=== PATIENT | male | born 1965 | race African-American/Black ===

== ENCOUNTER 2019-04-18 17:40 | Inpatient (IN) ==
[2019-04-18 18:15] LABS: URINE SOURCE CLEAN CATCH
[2019-04-18 18:22] LABS: BASO# 0.04 X1000 (0.0-0.2); BASO% 0.5 % (0.0-0.8); EOS# 0.01 X1000 (0.0-0.7); EOS% 0.1 % (0.0-10.0); HEMATOCRIT 49.9 % (42.0-52.0); IMM GRAN# 0.03 X1000 (0.0-0.04); IMM GRAN% 0.4 % (0.0-0.5); LYMPH# 0.75 X1000 (1.2-3.4); MCH 22.2 PG (27-31); MCHC 30.1 g/dL (33-37); MCV 73.8 FL (81-99); MONO# 0.61 X1000 (0.11-0.59); MONO% 7.3 % (1.7-9.3); MPV 10.9 FL (7.4-10.4); NEUT# 6.88 X1000 (1.4-6.5); NEUT% 82.7 % (42.2-75.2); PLT 210 X1000 (130-400); RBC 6.76 XMIL (4.7-6.1); RDW 17.3 % (11.5-14.5); WBC 8.32 X1000 (4.8-10.8)
[2019-04-18 18:22] LABS: BILIRUBIN URINE NEGATIVE (NEGATIVE); BLOOD URINE TRACE (NEGATIVE); COLOR YELLOW; GLUCOSE URINE >1000 mg/dL (NEGATIVE); KETONE URINE NEGATIVE (NEGATIVE); LEUKOCYTES URINE NEGATIVE (NEGATIVE); NITRITE URINE NEGATIVE (NEGATIVE); PROTEIN URINE 50 mg/dL (NEGATIVE); SP GRAVITY URINE 1.025; TURBIDITY URINE CLEAR (CLEAR); UROBILINOGEN URINE NORMAL (NORMAL)
[2019-04-18 18:23] LABS: UR EPITHELIAL CELLS <10 /HPF (<10); URINE BACTERIA NEGATIVE /HPF; URINE RBC <10 /HPF (<10); URINE WBC <10 /HPF (<10)
[2019-04-18 18:41] LABS: AGAP 15; ALB/GLOB RATIO 1.2; ALBUMIN 4.2 g/dL (3.5-5.0); ALKALINE PHOSPHATASE 62 U/L (32-122); BUN 13 mg/dL (8-22); CALCIUM 9.6 mg/dL (8.8-10.2); CHLORIDE 98 mmol/L (98-107); COSMO 281; CREATININE 1.4 mg/dL (0.7-1.2); ESTIMATED GFR > 60; GLUCOSE 262 mg/dL (70-104); GOT 31 U/L (10-34); GPT 19 U/L (10-44); POTASSIUM 4.2 mmol/L (3.5-5.1); SODIUM 136 mmol/L (136-145); TCO2 23 mmol/L (25-35); TOTAL BILIRUBIN 0.57 mg/dL (0.20-1.00); TOTAL PROTEIN 7.7 g/dL (6.3-8.3)
[2019-04-18 18:55] LABS: LIPASE 634 U/L (13-60)
[2019-04-18] MEDS ORDERED: DILAUDID IV ONE (19:31)
[2019-04-18] MEDS ORDERED: ZOFRAN IV ONE (19:31)
--- NOTE | 2019-04-18 19:50 | Diag Imaging Result Doc PS360 ---
CT ABDOMEN/PELVIS W/O CONTRAST - 04/18/2019 INDICATION: abd pain, hx of pancreatitis COMPARISON: 03/03/2017 FINDINGS: The lung bases are clear and the heart size is normal. There is severe diffuse fatty change of the liver. No biliary dilation. There is severe diffuse inflammatory edema all around the pancreas. No focal or drainable fluid collections. Stable penile prosthesis in good position. Urinary bladder and rectum are normal. No bowel obstruction or inflammation. There are couple of tiny 1 mm nonobstructing renal stones bilaterally. No hydronephrosis. IMPRESSION: 1. Severe diffuse pancreatitis. No fluid collections. 2. Severe fatty change of the liver. 3. Tiny nonobstructing renal stones. This exam was performed using automated exposure control, adjustment of mA or kV according to patient size, and/or use of iterative reconstruction technique Electronically signed by Patrick Shipman 04/18/2019 7:48 PM
[2019-04-18] MEDS ORDERED: NS 1,000 ML IV ONE (20:47)
--- NOTE | 2019-04-18 20:55 | PROVIDER DOCUMENTATION ---
This chart was entered by Radha Moran Scribe, acting as scribe for Hipolito Santana MD. HPI-Abdominal Pain/GI Problem - General Chief Complaint: Abdominal Pain Stated Complaint: "PANCREATITIS" Time Seen by Provider: 04/18/19 18:42 Source: patient, family Allergies/Adverse Reactions: Patient Allergies Allergy/AdvReac Type Severity Reaction Status Date / Time aspirin AdvReac Unknown Verified 07/26/17 16:45 Home Medications: Home Medication List Medication Instructions Recorded Confirmed Last Taken Type Metformin HCl [Glumetza] 500 mg PO BID 09/17/13 04/18/19 05/07/16 08:00 History Nebivolol HCl [Bystolic] 10 mg PO QAM 09/18/13 04/18/19 05/07/16 08:00 History Insulin Detemir [Levemir] 35 unit SQ DAILY 02/26/17 04/18/19 Unknown History Rosuvastatin Calcium [Crestor] 5 mg PO DAILY 02/26/17 04/18/19 Unknown History Antihemophil.fviii,Full Length 3,000 unit IV DIRECTED 07/26/17 04/18/19 Unknown History [Advate] Fenofibric Acid D.r. [Trilipix] 135 mg PO DAILY 07/26/17 04/18/19 Unknown History Glucosamine 500 mg PO BID 07/26/17 04/18/19 Unknown History Hydrochlorothiazide 12.5 mg PO DAILY 07/26/17 04/18/19 Unknown History Hydrocodone/Acetaminophen [[place] 10 mg PO Q4H PRN PRN 07/26/17 04/18/19 Unknown History 10-325 Tablet] Omeprazole 20 mg PO DAILY 07/26/17 04/18/19 Unknown History Sucralfate 1 gm PO BID 07/26/17 04/18/19 Unknown History Febuxostat [Uloric] 1 tab PO DAILY 04/18/19 04/18/19 Unknown History Losartan Potassium [Cozaar] 50 mg PO 04/18/19 Unknown History Sucralfate 1 tab PO DAILY 04/18/19 04/18/19 Unknown History - History of Present Illness-ABD Nature of Presenting Problems: Pt is a 53 yom who presents to the ED with a cc of abd and back pain. Pt states that the back pain began last night and the abd pain began this morning. Pt reports a hx of pancreatitis and states that his symptoms are similar to the last time. Pt describes the pain as "cramping" and reports nausea, vomiting, and loss of appetite. Pt also states that he attempted to use the restroom and strained. Pt states that he drinks a pint of alcohol a day and that the alcohol triggered his last pancreatitis. Pt does not present to the ED with any other complaints. Pt states last drink was last night; he denies any hx of DTs. Abdominal Pain Onset Location: reports: generalized abdomen Pain Radiation: reports: back Quality of Pain: reports: cramping Severity in ED: reports: mild Onset/Duration: reports: this morning, last night Timing: reports: still present Activities at Onset: reports: none Exposure to sick contacts?: No Modifying Factors: improves with: nothing Associated Symptoms: reports: back/neck pain, loss of appetite, nausea, vomiting Last BM: this morning Dark Stools Present?: reports: none noticed, other (Pt states stool is actually light "yellowish, caramel" color) Rectal Bleeding: reports: none Rectal Pain: reports: none # of Vomiting Episodes: 1 Emesis Description: reports: other (food contents) Bruising or Bleeding Gums?: No Similar Symptoms Previously?: Yes Recently seen or treated by another doctor?: Yes Review of Systems - Adult - REVIEW OF SYSTEMS - ADULT Constitutional: reports: see HPI Eyes: reports: no symptoms reported Ears, Nose, Mouth & Throat: reports: no symptoms reported Cardiovascular: reports: no symptoms reported Respiratory: reports: no symptoms reported Gastrointestinal: reports: see HPI, abdominal pain, nausea, vomiting Genitourinary: reports: no symptoms reported Musculoskeletal: reports: see HPI, back pain Integumentary: reports: no symptoms reported Neurological: reports: no symptoms reported Psychiatric: reports: no symptoms reported Endocrine: reports: no symptoms reported Hematologic/Lymphatic: reports: no symptoms reported Allergic/Immunologic: reports: no symptoms reported All Other Systems: Reviewed and Negative Past History - Adult - PAST MEDICAL HISTORY-ADULT Review of Records: reports: Old Records Reviewed Major Childhood Illnesses: reports: denies history Cardiovascular: reports: HTN, hyperlipidemia Respiratory: reports: denies history Gastrointestinal: reports: other (pancreatitis) Obstetrical/Gynecological: reports: denies history Genitourinary: reports: prostate cancer Musculoskeletal: reports: other (gout) Neurological: reports: denies history Endocrine/Immune: reports: Diabetes Diabetes Type: Type 2 Diabetes controlled by:: PO Meds, Insulin Dependent 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) - PRIOR SURGERIES/PROCEDURES Surgical/Procedure History: reports: other (total knee replacement, left elbow, left ankle fusion, prostate) - PRIOR HOSPITALIZATIONS Prior Hospitalizations: reports: none - IMMUNIZATION STATUS Childhood Immunizations: See Nurse Assessment Flu Vaccine: See Nurse Assessment - FAMILY HISTORY Family History: reviewed, not pertinent - SOCIAL HISTORY Smoking: quit greater than 1 year Substance Use: alcohol Alcohol Use Frequency: every day Number of drinks per typical drinking period:: 5-10 drinks Living Situation: family Physical Exam-General - PHYSICAL EXAM-ADULT Initial Vital Signs Reviewed: Yes - CONSTITUTIONAL General Appearance: alert, no apparent distress - EYES Eyes: PERRL/EOMI, pink conjunctivae - HEAD, EARS, NOSE, MOUTH & THROAT HENMT: normocephalic/atraumatic, moist mucous membranes - NECK Neck: full range of motion - RESPIRATORY Respiratory: chest non-tender, lungs clear, normal breath sounds. negative: crackles, rhonchi - CARDIOVASCULAR Cardiovascular: normal peripheral pulses, regular rate, rhythm, no murmur. negative: bradycardia, tachycardia - GASTROINTESTINAL (ABDOMEN) Abdominal Exam: abnormal bowel sounds (hypoactive), guarding, tenderness - MUSCULOSKELETAL Back Exam: normal inspection, no CVA tenderness. negative: ecchymosis Extremity: normal range of motion, non-tender, normal inspection. negative: deformity, erythema - SKIN Integumentary: normal color, normal turgor, warm/dry. negative: ecchymosis, erythema - NEUROLOGIC Neurologic: grossly normal, no motor/sensory deficits. negative: facial droop - PSYCHIATRIC Psych/Mental Status: normal mood/affect, oriented x 3 Progress - PLAN OF CARE/RESULTS Progress/Plan/Lab Results: Vital Signs - 8 hr 04/18/19 17:46 Temperature 98.3 F Pulse Rate 74 Respiratory Rate 19 Blood Pressure 160/97 O2 Sat by Pulse Oximetry 98 Laboratory Results - last 24 hr 04/18/19 04/18/19 04/18/19 17:56 17:56 18:00 WBC 8.32 RBC 6.76 H Hgb 15.0 Hct 49.9 MCV 73.8 L MCH 22.2 L MCHC 30.1 L RDW Std Deviation 17.3 H Plt Count 210 MPV 10.9 H Immature Gran % (Auto) 0.4 Neut % (Auto) 82.7 H Lymph % (Auto) 9.0 L [place] % (Auto) 7.3 Eos % (Auto) 0.1 Baso % (Auto) 0.5 Immature Gran # (Auto) 0.03 Neut # (Auto) 6.88 H Lymph # (Auto) 0.75 L [place] # (Auto) 0.61 H Eos # (Auto) 0.01 Baso # (Auto) 0.04 Sodium 136 Potassium 4.2 Chloride 98 Carbon Dioxide 23 L Anion Gap 15 BUN 13 Creatinine 1.4 H Estimated GFR/1.73 m2 > 60 BUN/Creatinine Ratio 9 Glucose 262 H Calculated Osmolality 281 Calcium 9.6 Total Bilirubin 0.57 AST 31 ALT 19 Alkaline Phosphatase 62 Total Protein 7.7 Albumin 4.2 Globulin 3.5 Albumin/Globulin Ratio 1.2 Urine Source CLEAN CATCH Urine Color YELLOW Urine Turbidity CLEAR Urine pH 6.0 Ur Specific [place] 1.025 Urine Protein 50 A Ur Glucose (Stick) >1000 A Ur Ketones (Stick) NEGATIVE Urine Blood TRACE A Urine Nitrite NEGATIVE Urine Bilirubin NEGATIVE Urobilinogen Dipstick NORMAL Urine Leukocytes NEGATIVE Urine WBC (Auto) <10 Urine RBC (Auto) <10 U Epithel Cells (Auto) <10 Urine Bacteria (Auto) NEGATIVE Orders Category Date Time Status NPO Diet 04/18/19 17:[address] ABDOMEN/PELVIS W/O CONTRAST [CT] Stat Exams 04/18/19 18:42 Ordered CBC WITH DIFF [HEME] Stat Lab 04/18/19 17:56 Completed COMPREHENSIVE METABOLIC PANEL [CHEM] Stat Lab 04/18/19 17:56 Results LIPASE [CHEM] Stat Lab 04/18/19 17:56 Results UA NIMS W/REFLEX CULT [URINALYSIS] Stat Lab 04/18/19 18:00 Completed Abd Pain/OB <20 weeks Stat Oth 04/18/19 17:49 Ordered Pt has lipase of 634, and CT confirming diffuse edema around the pancreas; pt to be admitted per discussion with hospitalist; pt and family made aware at bedside. Result Diagrams: 04/18/19 17:56 04/18/19 17:56 - CT/MRI 1 CT Study: Abdomen Impression: Abnormal (CT ABDOMEN/PELVIS W/O CONTRAST - 04/18/2019 INDICATION: abd pain, hx of pancreatitis COMPARISON: 03/03/2017 FINDINGS: The lung bases are clear and the heart size is normal. There is severe diffuse fatty change of the liver. No biliary dilation. There is severe diffuse inflammatory edema all around the pancreas. No focal or drainable fluid collections. Stable penile prosthesis in good position. Urinary bladder and rectum are normal. No bowel obstruction or inflammation. There are couple of tiny 1 mm nonobstructing renal stones bilaterally. No hydronephrosis. IMPRESSION: 1. Severe diffuse pancreatitis. No fluid collections. 2. Severe fatty change of the liver. 3. Tiny nonobstructing renal stones. This exam was performed using automated exposure control, adjustment of mA or kV according to patient size, and/or use of iterative reconstruction technique Electronically signed by Patrick Shipman 04/18/2019 7:48 PM [id number]) - CONSULTS/PCP/HOSPITALIST Notification #1 *Consult/PCP/Hospitalist*: Dr. Davis Time Discussed: 19:00 Consult Disposition: Admit Departure - Departure Date of Disposition Decision: 04/18/19 Time of Disposition Decision: 20:53 DIAGNOSIS: Pancreatitis, alcoholic, acute Qualifiers: Acute pancreatitis complication: unspecified Qualified Code(s): K85.20 - Alcohol induced acute pancreatitis without necrosis or infection Disposition: ADMITTED INPATIENT 09 Certified Medical Emergency: Emergent Condition: Fair Referrals and Follow-Ups: Jorge Luis Phelps MD [Primary Care Provider] - - Critical Care Note This patient required my direct & personal management of CC.: No Attestation - Physician/ CHANDRAKANT Attestation Patient care was provided by Advanced Practice Provider:: No The physician spent face to face time with patient:: Yes Advanced Practice Provider documentation review:: Supervising physician onsite and consulted in the evaluation and care of this patient. The physician did have a face to face encounter with the patient. This chart was documented by the guillaume scribe, (Radha Moran Scribe) and accurately reflects the services I performed and decisions made by , Hipolito Santana MD, as attested by the provider's signature.
[2019-04-18] MEDS ORDERED: ATIVAN IV PRN (21:40)
[2019-04-18] MEDS: DEMEROL IV PRN (21:50)
[2019-04-18] MEDS: ZOFRAN IV PRN (23:40)
[2019-04-18] MEDS: NS 1,000 ML IV SCH (23:40)
--- NOTE | 2019-04-19 02:05 | HISTORY AND PHYSICAL ---
PRIMARY CARE PROVIDER: Dr. Jorge Luis Phelps. CHIEF COMPLAINT: Back and abdominal pain. HISTORY OF PRESENT ILLNESS: Mr. Stephenson is a pleasant 53-year-old gentleman with a past medical history of hemophilia, factor VIII deficiency, recently was changed over to a subcu medication every 2 weeks for that, diabetes mellitus type 2, non-insulin dependent, hypertension, alcohol use and abuse. He reports about 1 pint of whiskey per day. He had stopped for a little while, but recently started back again this past month. He came to the ED complaining of back pain that started last night and then abdominal pain that was tender and cramping all over. He did have 1 episode of nausea and vomiting today after he tried to eat some food. His last BM was this a.m. He reported it as loose and Ericka colored. He has had some hot and cold sweats. No headache. No chest pain. No shortness of breath. No palpitations. No dysuria. No bright red or dark tarry stools. Workup in the ED with a abdomen and pelvis CT showed severe diffuse pancreatitis. No fluid collection. Severe fatty change of the liver. Tiny nonobstructing renal stones. Laboratory data showed an acute kidney injury with a creatinine of 1.4, which may baseline now. Lipase is 634 and a blood glucose level of 262. He will be admitted for acute pancreatitis. We will keep him NPO, antiemetics, pain regimen, and GI consult. PAST MEDICAL HISTORY: Per HPI. PAST SURGICAL HISTORY: Total prostatectomy, penile prosthesis, left elbow surgery, bilateral knee replacements, left ankle surgery, hemorrhoidectomy. SOCIAL HISTORY: He is disabled. He uses braces to walk with that are in his shoes to avoid surgery. He lives in [place]. He is . He has children. There is no tobacco use. He does drink a pink of whiskey per day. He did report he will go times without drinking. He had just started back drinking a month ago. No illicit drugs. FAMILY HISTORY: Brother who is also factor VIII deficient. HOME MEDICATIONS: Bystolic, Cozaar, Crestor, glucosamine, metformin, hydrochlorothiazide, Levemir, [place], Prilosec, Trilipix and Uloric. REVIEW OF SYSTEMS: Twelve-point review of systems completely negative except for those mentioned in HPI. PHYSICAL EXAMINATION: VITAL SIGNS: Temperature is 98.3 degrees, heart rate 74, respiration 19, blood pressure 160/97, O2 is 98% on room air. GENERAL: Mr. Stephenson is a pleasant 53-year-old male who is lying on the stretcher. He is complaining of some discomfort in his back as well as abdomen, but in no acute distress. HEENT: Atraumatic, normocephalic. PERRL. NECK: Supple. Trachea midline. CARDIOVASCULAR: S1, S2 appreciated. No murmurs, gallops, rubs noted. RESPIRATORY: Lung sounds clear bilaterally. GI is soft, tender all 4 quadrants. Positive bowel sounds. EXTREMITIES: Negative for edema. NEUROLOGIC: No focal deficits noted. DIAGNOSTIC DATA: Abdomen and pelvis CT severe diffuse pancreatitis. No fluid collection. Severe fatty change of the liver. Tiny nonobstructing renal stones. LABORATORY DATA: White count 8, hemoglobin and hematocrit 15 and 49, platelet count is 210,000. Sodium 136, potassium 4.2, BUN 13, creatinine 1.4. Blood glucose is 262, lipase is 634. Urinalysis shows greater than 1000 glucose, 50 protein. ASSESSMENT AND PLAN: 1. Acute alcoholic pancreatitis without any signs of infection or necrosis. We will make him NPO, consult GI. Continue with aggressive IV fluid hydration, pain regimen, antiemetics. Recheck his amylase and lipase in the a.m. 2. Chronic kidney disease. He appears to be at his baseline at 1.4. 3. Diabetes mellitus. We will check hemoglobin A1c in the a.m. Place him on sliding scale with pattern blood sugars. 4. Hemophilia factor VIII deficient. The patient is now on a subcu medication q.2 weeks. I will monitor him for any signs and symptoms of bleeding. 5. Hypertension, stable. 6. Alcohol use and abuse. The patient had quit and does that from [id number]. However, he started drinking again within the past month. He drinks a pint of whiskey a day. We have provided some p.r.n. Ativan in case of any agitation or withdrawals. 7. Further recommendation to follow physician evaluation, laboratory and diagnostic data. Dictated by ADAM Jung for Elder Davis MD cc: MD Jorge Luis Villagomez MD
[2019-04-19] MEDS: DEMEROL IV PRN ×6 (02:06→22:21)
[2019-04-19] MEDS: ZOFRAN IV PRN ×5 (06:13→22:21)
[2019-04-19 07:03] LABS: BASO# 0.01 X1000 (0.0-0.2); BASO% 0.1 % (0.0-0.8); EOS# 0.01 X1000 (0.0-0.7); EOS% 0.1 % (0.0-10.0); HEMOGLOBIN 14.3 g/dL (14.0-18.0); IMM GRAN# 0.02 X1000 (0.0-0.04); IMM GRAN% 0.2 % (0.0-0.5); LYMPH# 0.55 X1000 (1.2-3.4); LYMPH% 5.1 % (20.5-51.1); MCH 22.6 PG (27-31); MCHC 30.4 g/dL (33-37); MCV 74.1 FL (81-99); MONO# 0.72 X1000 (0.11-0.59); MONO% 6.7 % (1.7-9.3); MPV 12.3 FL (7.4-10.4); NEUT# 9.49 X1000 (1.4-6.5); NEUT% 87.8 % (42.2-75.2); PLT 224 X1000 (130-400); RBC 6.34 XMIL (4.7-6.1); RDW 16.7 % (11.5-14.5)
[2019-04-19 07:14] LABS: HEMOGLOBIN A1C 9.1 % (4.8-6.0)
[2019-04-19] MEDS: NS 1,000 ML IV SCH ×3 (07:42→23:52)
[2019-04-19 07:46] LABS: LYMPHS 2 % (21-51); MONO 3 % (1-9); SEGS 95 % (42-75)
[2019-04-19 07:47] LABS: AGAP 12; ALB/GLOB RATIO 1.3; ALBUMIN 3.8 g/dL (3.5-5.0); ALKALINE PHOSPHATASE 51 U/L (32-122); AMYLASE 816 U/L (20-200); BUN 16 mg/dL (8-22); CALCIUM 8.8 mg/dL (8.8-10.2); CHLORIDE 102 mmol/L (98-107); COSMO 278; CREATININE 1.2 mg/dL (0.7-1.2); ESTIMATED GFR > 60; GLUCOSE 227 mg/dL (70-104); GOT 27 U/L (10-34); GPT 14 U/L (10-44); LIPASE 590 U/L (13-60); MAGNESIUM 1.4 mg/dL (1.5-2.7); POTASSIUM 4.3 mmol/L (3.5-5.1); SODIUM 135 mmol/L (136-145); TCO2 21 mmol/L (25-35); TOTAL BILIRUBIN 0.74 mg/dL (0.20-1.00); TOTAL PROTEIN 6.7 g/dL (6.3-8.3)
[2019-04-19] MEDS: HUMALOG SUBQ SCH ×4 (08:06→20:51)
--- NOTE | 2019-04-19 11:45 | PROGRESS NOTE ---
DATE: 04/19/2019 SUBJECTIVE: The patient reports still complaining of abdominal pain. Reports that he had another episode of pancreatitis 3 years back. No other complaints at this time. OBJECTIVE: Vital Signs: Temperature 98.3 degrees, heart rate 89, respiratory rate 17, blood pressure 138/85, O2 saturation 95% on room air. General examination: This is a 53-year-old, male, lying in bed in no acute distress. Cardiovascular exam: S1, S2 heard. No murmurs, gallops, or rubs. Regular rate and rhythm. Respiratory exam: Clear bilaterally to auscultation. No work of breathing or using accessory muscles. Abdomen: Soft. Tender to palpation in the epigastric area. No signs of peritoneal irritation. Bowel sounds present. No organomegaly. Extremities: No clubbing, cyanosis, or edema. Peripheral pulses present in both legs. Neurological examination: Patient alert and oriented x3. Moves 4 extremities. LABORATORY DATA: Reviewed. Glucose is 227 with hemoglobin A1c of 9.1. ASSESSMENT AND PLAN: 1. Acute alcoholic pancreatitis. The patient still complaining of pain. We are going to optimize pain medication. We are going to increase the doses of Demerol 250 mg intravenous every 3 hours. There are no signs of infection or necrosis on the CT scan. I do not think we will need to consult Gastroenterology at this point, so we are going to cancel the consult. We will continue with intravenous fluid resuscitation. The patient required some ice chips; we will provide that to him, but no food. We will continue to monitor. 2. Chronic kidney disease stage II. Creatinine at baseline. We will continue to monitor. 3. Diabetes mellitus type 2. Hemoglobin A1c is elevated, so means not well-controlled diabetes. We will continue with sliding scale insulin and Accu-Chek before meals and also at bedtime. 4. Hemophilia factor 8 deficiency. Patient is on medications every 2 weeks subcutaneously. We will continue with that, and we will monitor for any signs of bleeding. 5. Hypertension. Blood pressure is under control. We will continue with same management. 6. Alcohol use and abuse. Patient has been placed on Ativan as needed for agitation, withdrawals at this point. He does not look to be going through any withdrawals. We will continue to monitor. cc: Joel Romo MD
[2019-04-20] MEDS: DEMEROL IV PRN ×5 (05:59→23:00)
[2019-04-20] MEDS: HUMALOG SUBQ SCH ×4 (06:37→21:43)
[2019-04-20 07:23] LABS: BASO# 0.04 X1000 (0.0-0.2); BASO% 0.3 % (0.0-0.8); EOS# 0.03 X1000 (0.0-0.7); EOS% 0.2 % (0.0-10.0); HEMATOCRIT 44.7 % (42.0-52.0); HEMOGLOBIN 13.5 g/dL (14.0-18.0); IMM GRAN# 0.03 X1000 (0.0-0.04); IMM GRAN% 0.2 % (0.0-0.5); LYMPH# 0.66 X1000 (1.2-3.4); LYMPH% 4.5 % (20.5-51.1); MCH 22.4 PG (27-31); MCHC 30.2 g/dL (33-37); MCV 74.3 FL (81-99); MONO# 1.35 X1000 (0.11-0.59); MONO% 9.3 % (1.7-9.3); MPV 11.9 FL (7.4-10.4); NEUT# 12.47 X1000 (1.4-6.5); NEUT% 85.5 % (42.2-75.2); PLT 187 X1000 (130-400); RBC 6.02 XMIL (4.7-6.1); RDW 17.2 % (11.5-14.5); WBC 14.58 X1000 (4.8-10.8)
[2019-04-20 07:31] LABS: INR 1.24; PROTIME 15.8 Seconds (11.0-16.0)
[2019-04-20] MEDS: NS 1,000 ML IV SCH ×2 (07:40→18:51)
[2019-04-20 08:11] LABS: AGAP 12; ALB/GLOB RATIO 1.1; ALBUMIN 3.4 g/dL (3.5-5.0); ALKALINE PHOSPHATASE 64 U/L (32-122); BUN 15 mg/dL (8-22); CALCIUM 8.1 mg/dL (8.8-10.2); CHLORIDE 102 mmol/L (98-107); COSMO 275; CREATININE 1.2 mg/dL (0.7-1.2); ESTIMATED GFR > 60; GLUCOSE 167 mg/dL (70-104); GOT 23 U/L (10-34); GPT 9 U/L (10-44); POTASSIUM 3.9 mmol/L (3.5-5.1); SODIUM 135 mmol/L (136-145); TCO2 21 mmol/L (25-35); TOTAL PROTEIN 6.6 g/dL (6.3-8.3)
--- NOTE | 2019-04-20 10:46 | PROGRESS NOTE ---
DATE: 04/20/2019 SUBJECTIVE: Patient reports abdominal pain is much better controlled. He had some ice chips but that did not bother him, actually he wants to try some liquids today. OBJECTIVE: Vital Signs: Temperature 99.1 degrees, heart rate 90, respiratory rate 18, blood pressure 123/84, O2 saturation 96% on room air. General: This is a 53-year-old male, lying in bed, in no acute distress. Cardiovascular: S1, S2 heard. No murmurs, gallops, or rubs. Regular rate and rhythm. Respiratory: Clear bilaterally to auscultation. No work of breathing. Not using accessory muscles. Abdomen: Soft. Tender to palpation in the epigastric area. No signs of peritoneal irritation. Bowel sounds present. No organomegaly. Extremities: No clubbing, cyanosis, or edema. Peripheral pulses present in both legs. Neurological: Patient alert and oriented x3. Moves 4 extremities. LABORATORY DATA: Reviewed. ASSESSMENT AND PLAN: 1. Acute alcoholic pancreatitis. Pain is much better controlled. Currently, he is on Demerol 50 mg IV every 3 hours p.r.n. Will continue with IV fluids. The patient has tolerated ice chips well so we are going to start a clear liquid diet today and will see how he does. 2. Chronic kidney disease stage 3. Creatinine continues to be at baseline. 3. Diabetes mellitus type 2, well-controlled. Will continue with sliding scale insulin and Accu- Cheks before meals and also at bedtime. 4. Hemophilia Factor VIII deficiency. Aware. 5. Hypertension. Blood pressure is under control. We will continue with the same management. 6. Alcohol use and abuse. Patient is on Ativan as needed for possible alcohol withdrawal but this patient is completely alert, oriented. We will continue to monitor. cc: Joel Romo MD
--- NOTE | 2019-04-20 12:48 | Diag Imaging Result Doc PS360 ---
EXAM: US ABDOMEN-COMPLETE 04/20/2019 HISTORY: pancreatitis TECHNIQUE: Abdominal ultrasound COMMENT: The liver is hyperechoic. Visualization of the deeper portions of the liver is suboptimal due to the patient's body habitus. The gallbladder is clear and nontender. There is no evidence of biliary dilatation the common bile duct measuring less than 6 mm. The right kidney is without evidence of hydronephrosis or mass. The spleen is slightly enlarged measuring almost 15.6 cm in greatest dimension. The left kidney is without evidence of hydronephrosis or mass. The pancreas is not well seen. The aorta is obscured. IMPRESSION: Hepatic steatosis versus cirrhosis with splenomegaly. Electronically signed by Nate Cruz 04/20/2019 12:46 PM
[2019-04-20] MEDS: ZOFRAN IV PRN (23:00)
[2019-04-21] MEDS: NS 1,000 ML IV SCH ×4 (01:02→17:50)
[2019-04-21] MEDS: DEMEROL IV PRN ×6 (03:07→20:34)
[2019-04-21 07:24] LABS: INR 1.24; PROTIME 15.8 Seconds (11.0-16.0)
[2019-04-21 07:44] LABS: AGAP 12; ALKALINE PHOSPHATASE 64 U/L (32-122); BUN 11 mg/dL (8-22); CALCIUM 7.7 mg/dL (8.8-10.2); CHLORIDE 101 mmol/L (98-107); COSMO 272; CREATININE 1.1 mg/dL (0.7-1.2); ESTIMATED GFR > 60; GLUCOSE 144 mg/dL (70-104); GOT 22 U/L (10-34); GPT 9 U/L (10-44); POTASSIUM 3.7 mmol/L (3.5-5.1); SODIUM 135 mmol/L (136-145); TCO2 22 mmol/L (25-35); TOTAL BILIRUBIN 0.92 mg/dL (0.20-1.00); TOTAL PROTEIN 5.9 g/dL (6.3-8.3)
[2019-04-21] MEDS: HUMALOG SUBQ SCH ×4 (07:45→23:00)
[2019-04-21 07:51] LABS: BASO# 0.01 X1000 (0.0-0.2); BASO% 0.1 % (0.0-0.8); HEMATOCRIT 40.1 % (42.0-52.0); HEMOGLOBIN 12.1 g/dL (14.0-18.0); LYMPH# 0.62 X1000 (1.2-3.4); LYMPH% 6.4 % (20.5-51.1); MCH 22.6 PG (27-31); MCHC 30.2 g/dL (33-37); MCV 74.8 FL (81-99); MONO# 0.92 X1000 (0.11-0.59); MONO% 9.5 % (1.7-9.3); NEUT# 8.01 X1000 (1.4-6.5); PLT 128 X1000 (130-400); RBC 5.36 XMIL (4.7-6.1); RDW 16.1 % (11.5-14.5); WBC 9.66 X1000 (4.8-10.8)
[2019-04-21] MEDS: ZOFRAN IV PRN (08:28)
[2019-04-21 08:30] LABS: LYMPHS 4 % (21-51); MONO 6 % (1-9); SEGS 90 % (42-75)
[2019-04-21 08:31] LABS: ANISOCYTOSIS 1+; HYPOCHROM 1+; LARGE PLATELETS 1+; MICROCYTOSIS 2+; POIKILOCYTOSIS 1+
[2019-04-21] MEDS ORDERED: SODIUM PHOSPHATE 35 MMOL in NS 250 ML IV ONE (11:11)
[2019-04-21] MEDS: NEUTRA-PHOS PO SCH ×3 (13:32→20:35)
--- NOTE | 2019-04-21 14:51 | PROGRESS NOTE ---
DATE: 04/21/2019 SUBJECTIVE: The patient reports abdominal pain is under control. Patient reports that he tolerated a clear liquid diet very well. He wants to try more consistent food. OBJECTIVE: Vital Signs: Temperature 99 degrees, heart rate 88, respiratory rate 15, blood pressure 133/83, and O2 95% on room air. General: This is a 53-year-old male lying in bed in no acute distress. Cardiovascular: S1 and S2 heard. No murmurs, gallops, or rubs. Regular rate and rhythm. Respiratory: Clear bilaterally to auscultation. No work of breathing or using accessory muscles. Abdomen: Soft. Mildly tender to palpation in the epigastric area, but there are no signs of peritoneal irritation. Bowel sounds present. No organomegaly. Extremities: No clubbing, cyanosis, or edema. Peripheral pulses present in both legs. Neurological: Patient is alert and oriented x3. Moves all 4 extremities. LABORATORY DATA: Reviewed. Phosphorus 1.5 today. ASSESSMENT AND PLAN: 1. Alcoholic pancreatitis. We will continue with the current pain medication, in this case Demerol 50 mg q.3 hours. We will decrease the doses of IV fluids because he is going to have a GI soft diet. We will continue to monitor this patient closely. 2. Chronic kidney disease stage 3. The creatinine continues to be at baseline. We will continue to monitor BMP daily. 3. Diabetes mellitus type 2. We will continue with sliding scale insulin. Accu-Chek before meals and also at bedtime. 4. Hypophosphatemia. We will replenish phosphorus today. 5. Hemophilia factor 8 deficiency. Aware. 6. Hypertension. Blood pressure is under control. We will continue with the same management. 7. Alcohol use and abuse. Patient is on Ativan as needed for possible alcohol withdrawal, but until now he did not show any signs of possible withdrawal. He is fine. No hand tremors. No confusion. We will continue to monitor this patient. cc: MD DINA Chavez
[2019-04-22] MEDS: DEMEROL IV PRN ×5 (00:44→18:50)
[2019-04-22] MEDS: NS 1,000 ML IV SCH ×2 (02:38→18:46)
[2019-04-22 07:40] LABS: BASO# 0.03 X1000 (0.0-0.2); BASO% 0.4 % (0.0-0.8); EOS# 0.13 X1000 (0.0-0.7); EOS% 1.8 % (0.0-10.0); HEMATOCRIT 36.6 % (42.0-52.0); HEMOGLOBIN 11.2 g/dL (14.0-18.0); IMM GRAN# 0.02 X1000 (0.0-0.04); IMM GRAN% 0.3 % (0.0-0.5); LYMPH# 0.57 X1000 (1.2-3.4); LYMPH% 7.7 % (20.5-51.1); MCH 22.7 PG (27-31); MCHC 30.6 g/dL (33-37); MCV 74.2 FL (81-99); MONO# 0.74 X1000 (0.11-0.59); NEUT# 5.91 X1000 (1.4-6.5); NEUT% 79.8 % (42.2-75.2); PLT 155 X1000 (130-400); RBC 4.93 XMIL (4.7-6.1); RDW 16.1 % (11.5-14.5)
[2019-04-22 07:44] LABS: INR 1.13; PROTIME 14.6 Seconds (11.0-16.0)
[2019-04-22] MEDS: NEUTRA-PHOS PO SCH ×4 (08:08→21:46)
[2019-04-22 08:20] LABS: AGAP 12; ALB/GLOB RATIO 0.9; ALBUMIN 2.7 g/dL (3.5-5.0); ALKALINE PHOSPHATASE 67 U/L (32-122); BUN 10 mg/dL (8-22); CALCIUM 7.8 mg/dL (8.8-10.2); CHLORIDE 97 mmol/L (98-107); COSMO 267; ESTIMATED GFR > 60; GLUCOSE 187 mg/dL (70-104); GOT 23 U/L (10-34); GPT 9 U/L (10-44); POTASSIUM 3.7 mmol/L (3.5-5.1); SODIUM 131 mmol/L (136-145); TCO2 22 mmol/L (25-35); TOTAL BILIRUBIN 0.76 mg/dL (0.20-1.00); TOTAL PROTEIN 5.8 g/dL (6.3-8.3)
[2019-04-22] MEDS: HUMALOG SUBQ SCH ×4 (08:26→21:46)
--- NOTE | 2019-04-22 16:41 | PROGRESS NOTE ---
DATE: 04/22/2019 INTERVAL HISTORY: The patient did well, has done well with liquid diet up to this point, tolerating solids this morning. Still with some abdominal pain but markedly improved from previous. No nausea or vomiting. REVIEW OF SYSTEMS: Twelve point review of systems negative except as per interval history. LABS: WBC 7.4, hemoglobin 11.2, hematocrit 36.6, platelets 155,000. INR 1.13. Sodium 131, potassium 3.7, BUN 10, creatinine 1, glucose 187 to 223, bilirubin 0.76, AST 23, ALT 9, alkaline phosphatase 67. VITAL SIGNS: T-max 99.4 degrees, pulse 73, respirations 18, blood pressure 124/81, O2 saturation 99% on room air. PHYSICAL EXAMINATION: General: No acute distress. Vitals: As above. HEENT: Normocephalic, atraumatic. Moist mucous membranes. Cardiovascular: Regular rate and rhythm. No murmurs noted. Pulmonary: Clear to auscultation bilaterally. No wheezing, rales, or rhonchi. Abdomen: Soft. Minimal epigastric tenderness without rebound or guarding. Bowel sounds positive. Extremities: Peripheral pulses intact. No clubbing or cyanosis. Neurologic: Cranial nerves grossly intact. No focal deficits identified. Psychiatric: Normal mood and affect. Awake, alert, oriented x3. ASSESSMENT AND PLAN: 1. Alcoholic pancreatitis, markedly improved. Tolerating diet this morning. Has been hitting the IV Demerol pretty hard. Will wean that back significantly. Place on low-dose p.o. regimen. If he does well with that anticipate discharge tomorrow. 2. Chronic kidney disease 3. Creatinine essentially stable. 3. Diabetes mellitus. Occasional mild elevations but overall acceptable control. 4. Hypophosphatemia, improved. On recheck only minimally low and patient eating pretty well. We will hold off on further repletion. Recheck in the morning. 5. Hemophilia aware. 6. Hypertension blood pressure acceptable. Monitor. 7. Alcohol abuse. No signs or symptoms of withdrawal. The patient counseled on cessation. DISPOSITION: If he continues to do well without IV narcotics, then likely home tomorrow.
[2019-04-22] MEDS: NORCO-7.5 PO PRN ×2 (16:52→21:46)
[2019-04-22] MEDS: ZOFRAN IV PRN (21:46)
[2019-04-23] MEDS: DEMEROL IV PRN ×2 (00:19→10:51)
[2019-04-23] MEDS: NORCO-7.5 PO PRN (04:51)
[2019-04-23] MEDS: NEUTRA-PHOS PO SCH ×2 (10:51→14:52)
[2019-04-23] MEDS: HUMALOG SUBQ SCH ×3 (11:06→16:10)
[2019-04-23] MEDS: ZOFRAN IV PRN (11:23)
[2019-04-23 11:31] VITALS: BP 145/88
[2019-04-23] MEDS: NS 1,000 ML IV SCH (16:10)
--- NOTE | 2019-04-25 06:54 | DISCHARGE SUMMARY ---
ADMISSION DATE: 04/18/2019 DISCHARGE DATE: 04/23/2019 DISCHARGE DIAGNOSES: 1. Alcohol pancreatitis. 2. Fatty liver disease. 3. Chronic kidney disease 3. 4. Diabetes. 5. Hyponatremia. 6. Acute kidney injury. HOSPITAL COURSE: The patient presented with nausea and vomiting after eating as well as abdominal plan and cramping. Initial workup showed CT with severe diffuse pancreatitis and severe fatty liver changes in the liver. Lipase was 634. Amylase 816. The patient was a daily drinker with a 1 pint of whiskey per day habit. Reports that he has been abstinent for a while but started back again earlier in the month. He was treated symptomatically with pain and nausea control and IV fluids, as well as bowel rest. He had a mild elevation of his creatinine on admission to 1.4, which did improve to a 1.0 with hydration, which was thought to be his baseline. Once the patient's nausea and vomiting were resolved, and his abdominal pain was improving we began to advance his diet, and then to wean pain medicine. On the day of discharge he was eating a diabetic diet with no difficulty, and had no further vomiting although he had occasional minimal nausea. His chronic medical conditions including diabetes, hemophilia and hypertension were all grossly stable. He never had any signs of significant alcohol withdrawal. He was strongly counseled on alcohol cessation. Discharged home. Follow up with PCP. Likely because of his heavy alcohol use the patient's phosphorus was fairly low and has repleted several times. It has improved significantly but was still a little low on discharge so he was discharged with a script for a couple more days. He was at 1.5 initially and came up to 2.3 with a couple days of replacement in the hospital. DISCHARGE VITAL SIGNS: T-max 98.9 degrees, pulse 67, respirations 16, blood pressure 145/88, O2 saturation 97% on room air. DISCHARGE MEDICATIONS: Bystolic 10 mg p.o. q.a.m., losartan 50 mg p.o. daily, rosuvastatin 5 mg p.o. daily, metformin 500 mg p.o. b.i.d., hydrochlorothiazide 12.5 mg p.o. daily, Levemir 35 mg subcu daily, [place] as previously prescribed, omeprazole 20 mg p.o. daily, fenofibric acid 135 mg p.o. daily, Uloric 40 mg p.o. daily, Neutra-Phos powder packets 4 times a day for another 2 days, Zofran 4 mg oral dissolving tablets 4 mg p.o. every 6 hours as needed. DISCHARGE DIET: Diabetic low fat. FOLLOW-UP AND PLAN: The patient discharged home to follow up with PCP. The patient strongly advised to cease alcohol entirely. Recommend the patient seek AA or other alcohol cessation assistance.
== END 2019-04-23 16:00 | disposition home or self-care (01) | DRG 438 ==
LOC: ED 17:40 → EDIPHOLD 21:12 → SUATTDRO 21:12 → 4N 04-19 00:16
PROVIDERS: ATTEND Internal Medicine